=== PATIENT | male | born 1965 | race Two or more races ===

== ENCOUNTER 2021-05-17 13:02 | Emergency (ER) | payer OTHER ==
[~2021-05-17] VITALS: Ht 172.7 cm; Wt 67.6 kg
[2021-05-17] MEDS ORDERED: XANAX2 MG PO (13:21)
[2021-05-17] MEDS ORDERED: WELLBUTRIN SR150 MG PO (13:21)
[2021-05-17] MEDS ORDERED: PAXIL40 MG PO (13:21)
[2021-05-17] MEDS ORDERED: DOLOGEN CAPLET1 EACH PO (19:02)
== END 2021-05-17 19:05 | disposition home or self-care (01) ==
LOC: ER 13:02
DX: N50.812 Left testicular pain (principal); N50.811 Right testicular pain

== ENCOUNTER → 2024-11-02 07:14 | Outpatient (CLI) | payer OTHER ==
[~2024-11-02 07:14] MED LIST: DOLOGEN CAPLET1 EACH PO; PAXIL40 MG PO; WELLBUTRIN SR150 MG PO; XANAX2 MG PO
[2024-11-02 08:14] LABS: INR 1.15; PROTHROMBIN TIME 12.4 SECONDS (9.0-11.5)
== END | disposition home or self-care (01) ==
LOC: LAB 07:14
PROVIDERS: ATTEND Internal Medicine Geriatric Medicine
DX: D68.9 Coagulation defect, unspecified (principal)

== ENCOUNTER → 2024-11-04 | Day surgery (SDC) | payer OTHER ==
[2024-10-27 10:50] LABS: HEMATOCRIT 38.3 % (39.0-48.0); HEMOGLOBIN 13.5 g/dL (13-16.00); MEAN CELL VOLUME 92.9 fL (80.0-100.00); MEAN CORPUSCULAR HEMOGLOBIN 32.7 pg (27.00-32.0); MEAN CORPUSCULAR HGB CONC 35.2 g/dl (32.0-36.0); PLATELET COUNT 288 K/uL (150-450); RED BLOOD COUNT 4.12 M/uL (4.00-6.00); RED CELL DISTRIBUTION WIDTH 14.4 % (11.5-14.5)
[2024-10-27 10:58] LABS: URINE APPEARANCE Clear; URINE BILIRRUBIN Negative (NEGATIVE); URINE BLOOD Moderate; URINE COLOR Yellow; URINE GLUCOSE Negative (NEGATIVE); URINE KETONE Negative (NEGATIVE); URINE LEUKOCYTE Negative; URINE NITRATE Negative; URINE PROTEIN Negative (NEGATIVE); URINE UROBILINOGEN 0.2 E.U./dl
[2024-10-27 11:05] LABS: URINE BACTERIA 36.4 uL (0.0-1933); URINE EPITHELIAL CELLS 1.8 uL (0.0-38.8)
[2024-10-27 11:07] LABS: INR 1.17; PARTIAL THROMBOPLASTIN TIME 26.5 SECONDS (22.0-34.0); PROTHROMBIN TIME 12.6 SECONDS (9.0-11.5)
[2024-10-27 11:49] LABS: ALBUMIN 3.8 gm/dL (3.4-5.0); BILIRUBIN TOTAL 0.3 mg/dL (0.3-1.2); CALCIUM 9.8 mg/dL (8.5-10.1); CREATININE SERUM 0.74 mg/dL (0.70-1.30); GFR 109.02; GLOBULINA 3.9 G/DL (2.4-3.5); POTASSIUM 4.66 mEq/L (3.5-5.1); TOTAL PROTEIN 7.7 gm/dL (6.4-8.2)
[~2024-11-04] MED LIST changes: +BUPIVACAINE HCL 30 ML VIAL IJ ONE; +CEFTRIAXONE SODIUM 2,000 MG VIAL IV ONE; +LIDOCAINE HCL 1%/EPINEPHRINE 20ML VIAL IJ ONE; +METRONIDAZOLE/SODIUM CHLORIDE 500 MG/100 ML PIGGYBACK IV ONE; +POVIDONE-IODINE 118 ML BOTT TOP ONE; +THROMBIN,HU/FIBRINOGEN/CALCIUM 10 ML SYRINGE TOP ONE
== END | disposition home or self-care (01) ==
LOC: ADM 10-27 11:45 → CIR.AMB 07:34
PROVIDERS: ATTEND Colon & Rectal Surgery
DX: L05.91 Pilonidal cyst without abscess (principal); Z88.6 Allergy status to analgesic agent; J45.909 Unspecified asthma, uncomplicated; F20.9 Schizophrenia, unspecified